=== PATIENT | female | born 1975 | race Native Hawaiian/Other Pacific Islander ===

== ENCOUNTER 2018-11-25 15:29 | Emergency (ER) | payer OTHER ==
[~2018-11-25] VITALS: Ht 162.6 cm; Wt 104.3 kg
[2018-11-25 15:48] VITALS: TEMP 98
[2018-11-25 20:06] LABS: PLATELET COUNT 205 K/uL (152-353)
[2018-11-25 20:15] LABS: POTASSIUM 3.3 mmol/L (3.6-5.2)
[2018-11-25 21:45] VITALS: BP 139/80
== END 2018-11-25 21:45 | disposition home or self-care (01) ==
LOC: ED 15:29
PROVIDERS: Emergency Medicine
DX: K59.09 Other constipation (principal); N39.0 Urinary tract infection, site not specified; Z98.84 Bariatric surgery status
CPT/HCPCS: 36415; 74022; 80053; 81000; 82150; 83690; 85027; 87077; 87086; 87088; 87186; 99283; J1885